=== PATIENT | female | born 1945 | race Caucasian/White ===

== ENCOUNTER 2022-11-22 15:09 | Outpatient (CLI) | payer MEDICARE, BC, SELFPAY ==
--- NOTE | 2022-11-22 16:00 | CRLHL7_ITS ---
For Patients: As a result of the Century Cures Act, medical imaging exams and procedure reports are released immediately into your electronic medical record. You may view this report before your referring provider. If you have questions, please contact your health care provider. Indication: Asymmetrical hearing loss Technique: Noncontrast CT of the paranasal sinuses. Coronal and sagittal reformats. Bone and soft tissue algorithms. Comparison: CT sinus 02/11/2019 Findings: Frontal sinuses: The frontal sinuses and frontal recesses are clear. Ethmoid air cells: The ethmoid air cells are clear. Symmetric depths of the olfactory fossa. The anterior ethmoidal arteries traverse the ethmoid air cells bilaterally. Sphenoid sinuses: The sphenoid sinuses and sphenoethmoidal recesses are clear. Incidentally, the septum attaches to the left carotid canal. No optic canal or carotid canal dehiscence. Maxillary sinuses: The maxillary sinuses are clear. The osteomeatal units are clear. Nasal cavity: The nasal septum is relatively midline. No padma bullosa. No paradoxical turbinates. Other: No suspicious osseous lesions or periapical lucencies. Unremarkable orbits and intracranial structures. Bilateral temporal bones are unremarkable for technique, aside from minimal nonspecific opacification of the left mastoid tip. IMPRESSION: 1. Clear sinonasal cavity. No significant mucosal thickening or air-fluid level. 2. Bilateral temporal bones are unremarkable for technique, aside from minimal opacification of the left mastoid tip. No obvious middle ear effusion. Please note that all CT scans at this facility use dose modulation, iterative reconstruction, and/or weight-based dosing when appropriate to reduce radiation dose to as low as reasonably achievable. Dictated by Kat Lundberg MD @ 11/23/2022 10:14:35 AM (Electronically Signed)
--- NOTE | 2022-11-22 16:15 | CRLHL7_ITS ---
For Patients: As a result of the Century Cures Act, medical imaging exams and procedure reports are released immediately into your electronic medical record. You may view this report before your referring provider. If you have questions, please contact your health care provider. INDICATION: Asymmetric hearing loss. TECHNIQUE: Multiplanar multisequence MR imaging acquired through the brain and internal auditory canals prior to and following intravenous contrast. COMPARISON: None. FINDINGS: Prominence of the ventricles and sulci compatible with mild diffuse cerebral volume loss. No mass effect or midline shift. Scattered T2 FLAIR hyperintensities in the supratentorial white matter, typical for mild chronic microvascular ischemic changes. No diffusion restriction to suggest acute infarction. No intracranial hemorrhage or pathologic extra-axial fluid collection. No pathologic intracranial enhancement. No mass or pathologic enhancement within the internal auditory canals or cerebellopontine angles. No concerning signal abnormalities in the inner ear structures. No vascular loop within the internal auditory canals. The major arterial flow voids of the skullbase are preserved. The globes are symmetric. Minimal ethmoid sinus mucosal thickening. Small left mastoid effusion. IMPRESSION: 1. No acute intracranial abnormality. 2. No mass or pathologic enhancement within the internal auditory canals or cerebellopontine angles. 3. Mild chronic microvascular ischemic changes and diffuse cerebral volume loss. 4. Small left mastoid effusion. Dictated by Miguel Cha MD @ 11/23/2022 8:42:46 AM (Electronically Signed)
== END 2022-11-22 15:10 | disposition home or self-care (01) ==
LOC: MRI 15:10
PROVIDERS: PCP Family Medicine; Visit Provider Otolaryngology
DX: H91.90 Unspecified hearing loss, unspecified ear; I67.82 Cerebral ischemia; J32.9 Chronic sinusitis, unspecified
CPT/HCPCS: 70486; 70553; A9575

== ENCOUNTER 2022-11-28 06:17 | Day surgery (SDC) | payer MEDICARE, BC, SELFPAY ==
[2022-11-28] MEDS: TETRACAINE 0.5% OPHTH 1 DROP EYE-LEFT ×2 (06:30→06:35)
[2022-11-28] MEDS: KETOROLAC OPHTH 0.5% 1 DROP EYE-LEFT ×3 (06:30→06:40)
[2022-11-28] MEDS: SODIUM CHLORIDE 0.9 % (FLUSH) 10 ML SYRINGE IVF (06:49)
[2022-11-28 06:50] VITALS: BMI 20.5
[2022-11-28 06:55] VITALS: BP 117/65; PULSE 68; RESP 16; TEMP 37; O2SAT 98
--- NOTE | 2022-11-28 07:01 | SUR.PREOP ---
The eye drops brought by the patient (Ketorolac and Prednisolone) are examined and I have determined they are labeled by the patient's pharmacy for this patient as prescribed by the surgeon. The bottles are intact, recently obtained and appear to be correct.
--- NOTE | 2022-11-28 07:01 | SUR.PREOP ---
patient did a home covid antigen test on 11/27/22 and brought test with to show. I observed 1 line indicating a negative test.
[2022-11-28] MEDS: TETRACAINE 0.5% OPHTH 2 DROP EYE-LEFT (07:28)
[2022-11-28] MEDS: BALANCED SALT IRRIG SOLN 15 ML EYE-LEFT (07:34)
--- NOTE | 2022-11-28 07:58 | W.ANESCHARGE ---
Anesthesia Charges Start Date/Time Anesthesia Start Date: 11/28/22 Anesthesia Start Time: 07:23 Stop Date/Time Anesthesia Stop Date: 11/28/22 Anesthesia Stop Time: 07:59 Summary Emergency: No Extremes of Age: Over 72-CPT 86045
[2022-11-28 08:04] VITALS: BP 126/64; PULSE 71; RESP 16; TEMP 36.6; O2SAT 96
--- NOTE | 2022-11-28 08:10 | W.ANESCHARGE ---
Anesthesia Charges Start Date/Time Anesthesia Start Date: 11/28/22 Anesthesia Start Time: 07:23 Stop Date/Time Anesthesia Stop Date: 11/28/22 Anesthesia Stop Time: 07:59 Summary Emergency: No Extremes of Age: Over 72-CPT 33960
--- NOTE | 2022-11-28 09:43 | P.OPTPRC_ITS ---
Procedure Note Date of procedure: 11/28/22 Will [facility] bill your pro fee for this procedure?: Yes Procedure Description: SURGEON: Rachael Muñoz MD PREOPERATIVE DIAGNOSIS: Nuclear sclerotic cataract, left eye. POSTOPERATIVE DIAGNOSIS: Nuclear sclerotic cataract, left eye. NAME OF OPERATION: Phacoemulsification of cataract with posterior chamber intraocular lens implantation in the left eye. ANESTHESIA: Topical. ESTIMATED BLOOD LOSS: Less than 2 cc. COMPLICATIONS: None. PATHOLOGY SPECIMEN: None. INDICATIONS: See consult note for details. The risks, benefits and alternatives of the procedure were explained to the patient, who elected to proceed and sign ed informed consent to do so. PROCEDURE: The patient was brought to the pre-holding area where the left eye was identified as the operative eye. I placed my initials above this eye. The patient received eye drops consisting of 0.5% tetracaine, 1% tropicamide, 10% phenylephrine, and 0.5% ketorolac. The patient was then brought to the operating room where the left eye was again identified as the operative eye. The eye was prepped with Betadine and draped in the usual sterile ophthalmic fashion. A #15 super-sharp blade was used to create a paracentesis site. 1% non-preserved intracameral lidocaine was injected into the anterior chamber. Endocoat was injected into the anterior chamber. A 2.4 mm keratome was used to create a three-plane self-sealing incision 1 mm anterior to the temporal limbus. A cystotome was used to create an anterior capsular leaflet. The Utrata forceps were used to extend this to form a continuous curvilinear capsulorrhexis. Hydrodissection was performed. The cataract was removed with phacoemulsification using the [id number]-naw-[id number] technique. The irrigation and aspiration tip was used to remove the remaining cortex. Healon was injected into the capsular bag. An CHARITO ZCB00 intraocular lens of 22.0 diopters was injected into the capsular bag. The irrigation and aspiration tip was used to remove the remaining viscoelastic. Balanced salt solution on a cannula was used to hydrate the wound, and the wound was found to be watertight. The pupil was noted to be round. DISPOSITION: The patient was taken to the recovery room and discharged to home in stable condition. The patient was instructed to call me or go to the emergency department with any sudden change, including dramatic loss of vision, severe pain in the eye or eyebrow region, nausea, or vomiting. The patient will follow up in the clinic tomorrow morning. Surgeon: Rachael Muñoz MD
== END 2022-11-28 08:24 | disposition home or self-care (01) ==
PROVIDERS: PCP Family Medicine; Visit Provider Ophthalmology
PROC: (CPT 66984; principal; 2022-11-28 06:15)
DX: H25.12 Age-related nuclear cataract, left eye (principal)
CPT/HCPCS: 66984; 00142; 99100; A9270; J2250; J3010; V2632

== ENCOUNTER 2022-12-12 06:13 | Day surgery (SDC) | payer MEDICARE, BC, SELFPAY ==
[2022-12-12] MEDS: TETRACAINE 0.5% OPHTH 1 DROP EYE-RIGHT ×2 (06:30→06:35)
[2022-12-12] MEDS: KETOROLAC OPHTH 0.5% 1 DROP EYE-RIGHT ×3 (06:30→06:43)
[2022-12-12 06:46] VITALS: BP 135/85; PULSE 74; RESP 14; TEMP 37.3; O2SAT 100
[2022-12-12 06:48] VITALS: BMI 21.3
[2022-12-12] MEDS: SODIUM CHLORIDE 0.9 % (FLUSH) 10 ML SYRINGE IVF (06:55)
--- NOTE | 2022-12-12 06:58 | SUR.PREOP ---
The eye drops brought by the patient (Ketorolac and Prednisolone) are examined and I have determined they are labeled by the patient's pharmacy for this patient as prescribed by the surgeon. The bottles are intact, recently obtained and appear to be correct. [id number]
[2022-12-12] MEDS: TETRACAINE 0.5% OPHTH 2 DROP EYE-RIGHT (07:15)
[2022-12-12] MEDS: BALANCED SALT IRRIG SOLN 15 ML EYE-RIGHT (07:19)
--- NOTE | 2022-12-12 07:24 | W.ANESCHARGE ---
Anesthesia Charges Start Date/Time Anesthesia Start Date: 12/12/22 Anesthesia Start Time: 07:12 Stop Date/Time Anesthesia Stop Date: 12/12/22 Anesthesia Stop Time: 07:43 Summary Emergency: No Extremes of Age: Over 72-CPT 27411
[2022-12-12 07:42] VITALS: BP 109/75; PULSE 72; RESP 16; TEMP 36.4; O2SAT 100
--- NOTE | 2022-12-12 07:50 | W.PM.OPTPROC ---
Procedure Note Date of procedure: 12/12/22 Will [facility] bill your pro fee for this procedure?: Yes Procedure Description: SURGEON: Rachael Muñoz MD PREOPERATIVE DIAGNOSIS: Nuclear sclerotic cataract, right eye. POSTOPERATIVE DIAGNOSIS: Nuclear sclerotic cataract, right eye. NAME OF OPERATION: Phacoemulsification of cataract with posterior chamber intraocular lens implantation in the right eye. ANESTHESIA: Topical. ESTIMATED BLOOD LOSS: Less than 2 cc. COMPLICATIONS: None. PATHOLOGY SPECIMEN: None. INDICATIONS: See consult note for details. The risks, benefits and alternatives of the procedure were explained to the patient, who elected to proceed and signed informed consent to do so. PROCEDURE: The patient was brought to the pre-holding area where the right eye was identified as the operative eye. I placed my initials above this eye. The patient received eye drops consisting of 0.5% tetracaine, 1% tropicamide, 10% phenylephrine, and 0.5% ketorolac. The patient was then brought to the operating room where the right eye was again identified as the operative eye. The eye was prepped with Betadine and draped in the usual sterile ophthalmic fashion. A #15 super-sharp blade was used to create a paracentesis site. 1% non-preserved intracameral lidocaine was injected into the anterior chamber. Endocoat was injected into the anterior chamber. A 2.4 mm keratome was used to create a three-plane self-sealing incision 1 mm anterior to the temporal limbus. A cystotome was used to create an anterior capsular leaflet. The Utrata forceps were used to extend this to form a continuous curvilinear capsulorrhexis. Hydrodissection was performed. Mild iris prolapse was noted at the incision. The iris was carefully repositioned with the cannula with side swiping technique. The cataract was removed with phacoemulsification using the hjrflv-rti-[id number] technique. The irrigation and aspiration tip was used to remove the remaining cortex. Healon was injected into the capsular bag. An CHARITO ZCB00 intraocular lens of 23.0 diopters was injected into the capsular bag. The irrigation and aspiration tip was used to remove the remaining viscoelastic. Miostat was injected into the anterior chamber. Balanced salt solution on a cannula was used to hydrate the wound, and the wound was found to be watertight. The pupil was noted to be round. DISPOSITION: The patient was taken to the recovery room and discharged to home in stable condition. The patient was instructed to call me or go to the emergency department with any sudden change, including dramatic loss of vision, severe pain in the eye or eyebrow region, nausea, or vomiting. The patient will follow up in the clinic tomorrow morning. Surgeon: Rachael Muñoz MD
--- NOTE | 2022-12-12 09:33 | W.ANESCHARGE ---
Anesthesia Charges Start Date/Time Anesthesia Start Date: 12/12/22 Anesthesia Start Time: 07:12 Stop Date/Time Anesthesia Stop Date: 12/12/22 Anesthesia Stop Time: 07:43 Summary Emergency: No Extremes of Age: Over 72-CPT 56127
== END 2022-12-12 08:20 | disposition home or self-care (01) ==
PROVIDERS: PCP Family Medicine; Visit Provider Ophthalmology
PROC: (CPT 66984; principal; 2022-12-12 06:15)
DX: H25.11 Age-related nuclear cataract, right eye (principal)
CPT/HCPCS: 66984; 00142; 99100; A9270; J2250; J3010; V2632